=== PATIENT | female | born 2000 | race Caucasian/White ===

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

== ENCOUNTER 2023-03-26 08:46 | Emergency (ER) | payer OTHER, BC, MEDICAID ==
[2023-03-26] MEDS: Ondansetron 4 MG Tab.DIS PO ONE (09:15)
[2023-03-26] MEDS: Acetaminophen/Butalbital/Caffeine 325-50-40 MG Tab PO ONE (09:24)
== END 2023-03-26 11:17 | disposition home or self-care (01) ==
LOC: MW.ED 08:46
DX: S06.0X0A Concussion without loss of consciousness, initial encounter (principal); Z88.0 Allergy status to penicillin; Z88.5 Allergy status to narcotic agent; V49.9XXA Car occupant (driver) (passenger) injured in unspecified traffic accident, initial encounter
CPT/HCPCS: 70450; 81025; 99284; A9270; 99283

== ENCOUNTER 2023-09-08 07:37 | Emergency (ER) | payer BC, MEDICAID ==
[2023-09-08 08:00] LABS: APPEARANCE,URINE CLEAR; BILIRUBIN,URINE NEGATIVE (NEGATIVE); COLOR,URINE YELLOW; GLUCOSE,URINE NEGATIVE (NEGATIVE); KETONES,URINE NEGATIVE (NEGATIVE); LEUKOCYTE ESTERASE,URINE NEGATIVE (NEGATIVE); NITRITE,URINE NEGATIVE (NEGATIVE); OCCULT BLOOD,URINE SMALL (NEGATIVE); PH,URINE 6.5 (5.0-8.0); PROTEIN,URINE NEGATIVE (NEGATIVE); UROBILINOGEN,URINE 0.2 EU/dL (<2.0)
[2023-09-08 08:14] LABS: BACTERIA,URINE FEW (NEGATIVE); EPITHELIAL CELLS,URINE MANY (NONE-FEW)
[2023-09-08 09:14] LABS: BASOPHILS ABSOLUTE AUTO 0.05 K/uL (0.00-0.20); BASOPHILS PERCENT AUTO 0.4 % (0.0-1.0); EOSINOPHILS ABSOLUTE AUTO 0.23 K/uL (0.00-0.45); HEMATOCRIT 37.4 % (37.0-47.0); HEMOGLOBIN 12.7 g/dL (12.0-16.0); IMMATURE GRAN ABSOLUTE AUTO 0.04 K/uL (0.00-0.05); IMMATURE GRAN PERCENT AUTO 0.3 % (0.0-0.4); LYMPHOCYTES ABSOLUTE AUTO 2.78 K/uL (1.00-4.80); LYMPHOCYTES PERCENT AUTO 24.1 % (24.0-44.0); MEAN CORPUSCULAR HEMOGLOBIN 27.9 pg (28.0-32.0); MEAN PLATELET VOLUME 10.2 fL (9.4-12.3); MONOCYTES ABSOLUTE AUTO 0.86 K/uL (0.00-0.80); MONOCYTES PERCENT AUTO 7.5 % (0.0-8.0); NEUTROPHILS ABSOLUTE AUTO 7.58 K/uL (1.80-7.70); NEUTROPHILS PERCENT AUTO 65.7 % (41.0-71.0); PLATELET COUNT,PLT 356 K/uL (150-400); RED BLOOD CELL COUNT 4.56 M/uL (4.10-5.30); WHITE BLOOD CELL COUNT,WBC 11.54 K/uL (3.9-11.3)
[2023-09-08 09:44] LABS: A/G RATIO 0.8 (0.9-1.6); ALBUMIN 3.1 g/dL (3.4-5.0); BILIRUBIN TOTAL 0.3 mg/dL (0.2-1.0); CALCIUM 8.6 mg/dL (8.5-10.1); CARBON DIOXIDE,CO2 25.2 mmol/L (21.0-32.0); CREATININE 0.8 mg/dL (0.6-1.0); EST CRCL DRUG DOSING (CG) 104.14 mL/min; POTASSIUM,K 3.9 mmol/L (3.5-5.1); PROTEIN TOTAL,TP 6.9 g/dL (6.4-8.2)
== END 2023-09-08 10:17 | disposition home or self-care (01) ==
LOC: MW.ED 07:37
DX: O20.0 Threatened abortion (principal); Z79.899 Other long term (current) drug therapy; Z3A.01 Less than 8 weeks gestation of pregnancy
CPT/HCPCS: 36415; 76817; 76817-26; 80053; 81001; 81025; 84702; 85025; 99282; 99284

== ENCOUNTER 2023-11-13 10:47 | Emergency (ER) | payer OTHER, BC ==
[2023-11-13 12:05] LABS: BASOPHILS ABSOLUTE AUTO 0.04 K/uL (0.00-0.20); BASOPHILS PERCENT AUTO 0.3 % (0.0-1.0); EOSINOPHILS ABSOLUTE AUTO 0.15 K/uL (0.00-0.45); HEMATOCRIT 37.4 % (37.0-47.0); HEMOGLOBIN 12.5 g/dL (12.0-16.0); IMMATURE GRAN ABSOLUTE AUTO 0.05 K/uL (0.00-0.05); IMMATURE GRAN PERCENT AUTO 0.3 % (0.0-0.4); LYMPHOCYTES ABSOLUTE AUTO 2.77 K/uL (1.00-4.80); LYMPHOCYTES PERCENT AUTO 18.6 % (24.0-44.0); MEAN CORPUSCULAR HEMOGLOBIN 27.8 pg (28.0-32.0); MEAN CORPUSCULAR HGB CONC 33.4 g/dL (32.0-36.0); MEAN CORPUSCULAR VOLUME 83.1 fL (83.0-99.0); MEAN PLATELET VOLUME 10.6 fL (9.4-12.3); MONOCYTES ABSOLUTE AUTO 0.89 K/uL (0.00-0.80); NEUTROPHILS ABSOLUTE AUTO 10.96 K/uL (1.80-7.70); NEUTROPHILS PERCENT AUTO 73.8 % (41.0-71.0); PLATELET COUNT,PLT 313 K/uL (150-400); WHITE BLOOD CELL COUNT,WBC 14.86 K/uL (3.9-11.3)
[2023-11-13 12:18] LABS: APPEARANCE,URINE SLT CLOUDY; BILIRUBIN,URINE NEGATIVE (NEGATIVE); COLOR,URINE YELLOW; GLUCOSE,URINE NEGATIVE (NEGATIVE); KETONES,URINE NEGATIVE (NEGATIVE); LEUKOCYTE ESTERASE,URINE NEGATIVE (NEGATIVE); NITRITE,URINE NEGATIVE (NEGATIVE); OCCULT BLOOD,URINE TRACE-INTACT (NEGATIVE); PROTEIN,URINE NEGATIVE (NEGATIVE)
[2023-11-13 12:21] LABS: A/G RATIO 0.7 (0.9-1.6); ALBUMIN 2.9 g/dL (3.4-5.0); BILIRUBIN TOTAL 0.3 mg/dL (0.2-1.0); CALCIUM 8.6 mg/dL (8.5-10.1); CARBON DIOXIDE,CO2 21.9 mmol/L (21.0-32.0); CREATININE 0.6 mg/dL (0.6-1.0); EST CRCL DRUG DOSING (CG) 138.85 mL/min; POTASSIUM,K 3.8 mmol/L (3.5-5.1); PROTEIN TOTAL,TP 6.8 g/dL (6.4-8.2)
[2023-11-13 12:28] LABS: BACTERIA,URINE FEW (NEGATIVE); EPITHELIAL CELLS,URINE FEW (NONE-FEW); RBC,URINE 0-2 (0-2/HPF); WBC,URINE 0-3 (0-5/HPF)
[2023-11-13 12:36] LABS: CANDIDA DNA PROBE NEGATIVE (NEGATIVE); GARDNERELLA DNA PROBE POSITIVE (NEGATIVE); TRICHOMONAS DNA PROBE NEGATIVE (NEGATIVE)
== END 2023-11-13 12:42 | disposition home or self-care (01) ==
LOC: MW.ED 10:47
DX: O99.891 Other specified diseases and conditions complicating pregnancy (principal); R10.9 Unspecified abdominal pain; O26.852 Spotting complicating pregnancy, second trimester; O23.591 Infection of other part of genital tract in pregnancy, first trimester; M25.522 Pain in left elbow; Z3A.15 15 weeks gestation of pregnancy; Z88.0 Allergy status to penicillin; Z88.8 Allergy status to other drugs, medicaments and biological substances; Z79.899 Other long term (current) drug therapy
CPT/HCPCS: 36415; 73080-RT; 80053; 81001; 85025; 86900; 86901; 87480; 87510; 87660; 99284

== ENCOUNTER 2024-04-24 22:40 | Inpatient (IN) | payer BC, MEDICAID ==
[2024-04-25] MEDS ORDERED: Tranexamic Acid IN NACL,ISO-OS 1,000 MG in Premix Bag 1 BAG IV PRN ×2 (02:34→13:01)
[2024-04-25] MEDS ORDERED: Sodium Chloride 0.9% 2.5 ML Syringe FLUSH PRN (02:34)
[2024-04-25] MEDS ORDERED: Water For Irrigation,Sterile 1,000 ML Container IRR PRN (02:34)
[2024-04-25] MEDS ORDERED: Lidocaine 1% 50 ML MDV INJECT PRN (02:34)
[2024-04-25] MEDS ORDERED: Sodium Chloride 0.9% 20 ML SDV IV PRN (02:34)
[2024-04-25] MEDS ORDERED: Sodium Chloride 0.9% 10 ML Syringe FLUSH PRN (02:34)
[2024-04-25] MEDS ORDERED: Carboprost Tromethamine 250 MCG/1 mL Vial IM PRN (02:34)
[2024-04-25] MEDS ORDERED: Misoprostol 200 MCG Tab PO PRN (02:34)
[2024-04-25] MEDS ORDERED: Ondansetron 4 MG/2 ML SDV IVPUSH PRN (02:34)
[2024-04-25] MEDS ORDERED: Methylergonovine 0.2 MG/1 ML Amp IM PRN ×2 (02:34→13:01)
[2024-04-25] MEDS ORDERED: Oxytocin/0.9 % Sodium Chloride 30 UNIT/500 ML BAG IV SCH (02:45)
[2024-04-25 02:49] LABS: HEMOGLOBIN 11.5 g/dL (12.0-16.0); MEAN CORPUSCULAR HEMOGLOBIN 25.6 pg (28.0-32.0); MEAN CORPUSCULAR HGB CONC 32.9 g/dL (32.0-36.0); MEAN CORPUSCULAR VOLUME 77.8 fL (83.0-99.0); MEAN PLATELET VOLUME 11.2 fL (9.4-12.3); PLATELET COUNT,PLT 335 K/uL (150-400); WHITE BLOOD CELL COUNT,WBC 14.87 K/uL (3.9-11.3)
[2024-04-25] MEDS: Lactated Ringers 1,000 ML IV SCH (02:58)
[2024-04-25] MEDS: Ropivacaine HCl/PF 400 MG in Premix Bag 1 BAG EPIDUR SCH (03:44)
[2024-04-25] MEDS ORDERED: ePHEDrine 50 MG/ML SDV IVPUSH PRN (04:06)
[2024-04-25] MEDS ORDERED: dexmedeTOMIDine HCl 200 MCG/2 ML SDV EPIDUR SCH (04:15)
[2024-04-25] MEDS ORDERED: Terbutaline 1 MG/ML SDV SUBCUT PRN (07:39)
[2024-04-25] MEDS: Phenylephrine HCl In 0.9% NaCl 1 MG/10 ML Syringe IVPUSH PRN (08:19)
[2024-04-25] MEDS: ePHEDrine 50 MG/ML SDV IVPUSH PRN (08:38)
[2024-04-25] MEDS: Oxytocin/0.9 % Sodium Chloride 30 UNIT/500 ML BAG IV SCH (09:05)
[2024-04-25] MEDS: Phenylephrine HCl In 0.9% NaCl 1 MG/10 ML Syringe ONE (09:28)
[2024-04-25] MEDS: dexmedeTOMIDine HCl 200 MCG/2 ML SDV ONE (09:28)
[2024-04-25] MEDS: Ropivacaine HCl/PF 200 ML ONE (09:29)
[2024-04-25] MEDS: Sodium Chloride 0.9% 1,000 ML IRR ONE (10:15)
[2024-04-25] MEDS ORDERED: Lanolin 100% Cream 7 GM Tube TOP PRN (13:01)
[2024-04-25] MEDS ORDERED: Misoprostol 200 MCG Tab RECTAL PRN (13:01)
[2024-04-25] MEDS: Witch Hazel Medicated Pads 40/Jar TOP PRN (14:08)
[2024-04-25] MEDS: Ibuprofen 800 MG Tab PO PRN (14:08)
[2024-04-25] MEDS: Benzocaine/Menthol 20%-0.5% Spray 78 GM Cannister TOP PRN (14:08)
[2024-04-25] MEDS: Acetaminophen 500 MG Tab PO PRN (17:07)
[2024-04-25] MEDS: Docusate Sodium 100 MG Cap PO PRN (17:08)
[2024-04-25 17:19] LABS: PH,UMBILICAL ARTERIAL 7.21 (7.18-7.38); PH,UMBILICAL VENOUS 7.323 (7.25-7.45)
[2024-04-26 06:29] LABS: HEMATOCRIT 33.7 % (37.0-47.0); HEMOGLOBIN 10.8 g/dL (12.0-16.0)
[2024-04-26] MEDS: Prenatal Multivitamin with Calcium/Folic Acid/Iron Tab PO SCH (08:45)
== END 2024-04-26 16:02 | disposition home or self-care (01) | DRG 560 ==
LOC: MW.OBCHECK 22:40 → MW.OB 22:46 → MW.OBCHECK 04-25 02:34 → OBSVTOIN 04-25 13:01 → MW.OB 04-25 17:03
PROVIDERS: ADMIT Obstetrics & Gynecology; ATTEND Obstetrics & Gynecology
PROC: 10E0XZZ Delivery of Products of Conception, External Approach (ICD-10-PCS; principal; 2024-04-25)
PROC: 3E0R3BZ Introduction of Anesthetic Agent into Spinal Canal, Percutaneous Approach (ICD-10-PCS; 2024-04-25)
PROC: 00HU33Z Insertion of Infusion Device into Spinal Canal, Percutaneous Approach (ICD-10-PCS; 2024-04-25)
PROC: 10H07YZ Insertion of Other Device into Products of Conception, Via Natural or Artificial Opening (ICD-10-PCS; 2024-04-25)
DX: O99.214 Obesity complicating childbirth (principal); Z37.0 Single live birth; O69.81X0 Labor and delivery complicated by cord around neck, without compression, not applicable or unspecified; Z3A.38 38 weeks gestation of pregnancy
CPT/HCPCS: 36415; 51702; 59025; 59409; 82803; 85014; 85018; 85027; 86592; 86850; 86900; 86901; A9270-GY; J2371; J2590; J2795; J3490; J7030; J7120

== ENCOUNTER 2024-10-07 17:45 | Emergency (ER) | payer BC, MEDICAID ==
[2024-10-07] MEDS ORDERED: Sodium Chloride 0.9% 2.5 ML Syringe FLUSH PRN (18:54)
[2024-10-07] MEDS ORDERED: Sodium Chloride 0.9% 10 ML Syringe FLUSH PRN (18:54)
[2024-10-07] MEDS: cefTRIAXone 2 GM in Sodium Chloride 0.9% 50 ML IV STA (19:25)
[2024-10-07] MEDS: Sodium Chloride 0.9% 1,000 ML IV STA (19:25)
[2024-10-07] MEDS: Ondansetron 4 MG/2 ML SDV IVPUSH STA (19:26)
[2024-10-07] MEDS: Ketorolac 30 MG/ML SDV IVPUSH STA (19:27)
[2024-10-07] MEDS: Acetaminophen 500 MG Tab PO STA (19:34)
[2024-10-07 19:37] LABS: BASOPHILS ABSOLUTE AUTO 0.04 K/uL (0.00-0.20); BASOPHILS PERCENT AUTO 0.4 % (0.0-1.0); EOSINOPHILS ABSOLUTE AUTO 0.64 K/uL (0.00-0.45); EOSINOPHILS PERCENT AUTO 6.2 % (0.0-6.0); HEMATOCRIT 38.6 % (37.0-47.0); HEMOGLOBIN 12.8 g/dL (12.0-16.0); IMMATURE GRAN ABSOLUTE AUTO 0.02 K/uL (0.00-0.05); IMMATURE GRAN PERCENT AUTO 0.2 % (0.0-0.4); LYMPHOCYTES ABSOLUTE AUTO 0.74 K/uL (1.00-4.80); LYMPHOCYTES PERCENT AUTO 7.2 % (24.0-44.0); MEAN CORPUSCULAR HEMOGLOBIN 27.2 pg (28.0-32.0); MEAN CORPUSCULAR HGB CONC 33.2 g/dL (32.0-36.0); MEAN PLATELET VOLUME 10.8 fL (9.4-12.3); MONOCYTES ABSOLUTE AUTO 0.91 K/uL (0.00-0.80); MONOCYTES PERCENT AUTO 8.9 % (0.0-8.0); NEUTROPHILS ABSOLUTE AUTO 7.92 K/uL (1.80-7.70); NEUTROPHILS PERCENT AUTO 77.1 % (41.0-71.0); PLATELET COUNT,PLT 313 K/uL (150-400); RED BLOOD CELL COUNT 4.71 M/uL (4.10-5.30); WHITE BLOOD CELL COUNT,WBC 10.27 K/uL (3.9-11.3)
[2024-10-07 20:04] LABS: ALBUMIN 3.6 g/dL (3.4-5.0); BILIRUBIN TOTAL 0.3 mg/dL (0.2-1.0); CALCIUM 9.1 mg/dL (8.5-10.1); CARBON DIOXIDE,CO2 26.5 mmol/L (21.0-32.0); CREATININE 0.8 mg/dL (0.6-1.0); EST CRCL DRUG DOSING (CG) 103.26 mL/min; POTASSIUM,K 4.1 mmol/L (3.5-5.1); PROTEIN TOTAL,TP 7.1 g/dL (6.4-8.2)
[2024-10-07 20:08] LABS: MAGNESIUM 1.7 mg/dL (1.8-2.4)
[2024-10-07] MEDS: Magnesium Sulfate/Water Premix 2 GM in Premix Bag 1 BAG IV STA (20:51)
== END 2024-10-07 21:52 | disposition home or self-care (01) ==
LOC: MW.ED 17:45
DX: J18.9 Pneumonia, unspecified organism (principal); E83.42 Hypomagnesemia; R11.0 Nausea; F17.210 Nicotine dependence, cigarettes, uncomplicated; Z88.0 Allergy status to penicillin; Z88.5 Allergy status to narcotic agent; Z79.899 Other long term (current) drug therapy; Z75.8 Other problems related to medical facilities and other health care
CPT/HCPCS: 36415; 71046; 80053; 83605; 83690; 83735; 84484; 84703; 85025; 87040; 87428; 93005; 96361; 96365; 96367; 96375; 99285; A9270; J0696; J1885; J2405; J3475; J3490; J7030; 93010; 99283